=== PATIENT | male | born 1950 | race Caucasian/White ===

== ENCOUNTER 2017-06-11 21:49 | Emergency (ER) | payer MEDICARE, BC ==
[~2017-06-11] VITALS: Ht 166.4 cm; Wt 95.5 kg
[~2017-06-11 21:49] MED LIST: ACYCLOVIR400 MG PO; ALDACTONE25 MG PO; AMLODIPINE2.5 MG PO; AMLODIPINE5 MG PO; ANTIVERT12.5 MG PO; ANTIVERT25 MG PO; BUMETANIDE1 MG PO; CALCIUM600 M2 PO; CENTRUM SILVER ULTR1 PO; CLARITIN10 MG PO; DECADRON4 MG PO; DILAUDID2 MG PO; DOCUSATE CAL240 MG PO; DURAGESIC12 ( TD; FLEXERIL10 MG PO; FLOMAX0.4 M1 PO; HYDROCO/APAP1 TA9 PO; KLOR-CON SPRIN10 MEQ PO; LORAZEPAM0.5 MG PO; MAG OXIDE400 MG PO; MECLIZINE HCL25 MG PO; MILK OF MAG30 ML/UDC PO; MIRALAX3350 NF PO; NAPROSYN500 MG PO; PANTOPRAZOLE SO40 MG PO; PERCOCET 5/325M1 TAB OR; PREDNISONE10 MG PO; PREDNISONE5 MG PO; PROTONIX40 M2 PO; SIMVASTATIN40 MG PO; STERAPRED5 MG PO; VELCADE3.5 MG IV; VITAMIN D31000 UNI1 PO; VYTORIN1 TA1 OR; ZOCOR PO; ZOCOR5 MG PO; [UNRECOGNIZED DRUG - OTHER]
[2017-06-11] MEDS ORDERED: AMLODIPINE5 MG PO (22:32)
[2017-06-11] MEDS ORDERED: ZOFRAN ODT4 MG PO (22:33)
[2017-06-11] MEDS ORDERED: BUMETANIDE1 MG PO (22:33)
[2017-06-11] MEDS ORDERED: ALLEGRA180 MG PO (22:35)
[2017-06-11 23:05] LABS: HEMOGLOBIN 15.7 g/dl (14.0-18.0); IMMATURE GRANULOCYTES 0.7 % (0.0-1.0); MEAN CELL VOLUME 93.1 fL CALC (80.0-100.0); MEAN CORPUSCULAR HGB 31.8 pG CALC (26.0-32.0); MEAN CORPUSCULAR HGB CONC 34.1 g/L CALC (32.0-36.0); NEUT# 11.2 thou/uL (1.82-7.42); RED BLOOD COUNT 4.94 mill/uL (4.70-6.10); RED CELL DISTRI WIDTH 12.8 % (11.5-15.5)
[2017-06-11 23:16] LABS: ALBUMIN 4.8 g/dL (3.2-5.0); ALKALINE PHOSPHATASE 73 u/l (38-126); AMYLASE 111 u/l (30-110); ANION GAP 18 (6-22 (CALC)); BILIRUBIN, TOTAL 0.8 mg/dL (0.0-1.4); BUN 29 mg/dL (8-23); BUN/CREATININE RATIO 14 (12-20 (CALC)); CALCIUM 9.6 mg/dL (8.4-10.2); CARBON DIOXIDE 25 mmol/l (22-30); CHLORIDE 106 mmol/l (95-108); CREATININE 2.1 mg/dL (0.7-1.3); GFR 32 ML/MIN (>=60 (CALC)); GFR FOR AFR.AMER. 38 ML/MIN (>=60 (CALC)); GLUCOSE 120 mg/dL (82-115); LIPASE 110 u/l (23-300); POTASSIUM 3.4 mmol/l (3.5-5.1); SGOT/AST 40 u/l (19-48); SGPT/ALT 49 u/l (11-66); SODIUM 146 mmol/l (137-146); TOTAL PROTEIN 7.7 g/dL (6.3-8.2)
[2017-06-11 23:28] LABS: MYOGLOBIN 140 ng/mL (0 - 121)
[2017-06-11 23:33] LABS: URINE BILIRUBIN - DIPSTICK NEGATIVE (NEGATIVE); URINE BLOOD DIPSTICK NEGATIVE (NEGATIVE); URINE CLARITY CLEAR; URINE COLOR YELLOW; URINE GLUCOSE - DIPSTICK NEGATIVE (NEGATIVE); URINE KETONE NEGATIVE (NEGATIVE); URINE LEUK ESTERASE NEGATIVE (NEGATIVE); URINE NITRITE - DIPSTICK NEGATIVE (Negative); URINE PH 5.5 (4.5-8.0); URINE PROTEIN - DIPSTICK NEGATIVE (NEG-TRACE); URINE SPECIFIC GRAVITY 1.015; URINE UROBILINOGEN - DIPSTICK 0.2 E.U./dL (0.2)
[2017-06-12 00:35] VITALS: BP 155/89
== END 2017-06-12 00:35 | disposition home or self-care (01) ==
LOC: ED 21:49
PROVIDERS: Emergency Medicine
DX: R11.0 Nausea (principal); I10 Essential (primary) hypertension; E78.5 Hyperlipidemia, unspecified; R19.7 Diarrhea, unspecified

== ENCOUNTER 2021-05-27 07:01 | Day surgery (SDC) | payer MEDICARE, BC ==
[~2021-05-27] VITALS: Ht 167.6 cm; Wt 108.9 kg
[~2021-05-27 07:01] MED LIST changes: +ALLEGRA180 MG PO; +CLARITIN-D1 TA2 PO; +REPATHA SUR140 MG/ML IM; +SPIRONOLACTONE25 MG PO; +TAMSULOSIN HCL0.4 MG PO; +TOPROL XL25 M1 PO; +TYLENOL PM PO; +ZOFRAN ODT4 MG PO; +[UNRECOGNIZED DRUG - OTHER] PO
[2021-05-27 09:18] VITALS: BP 108/70
== END 2021-05-27 09:40 | disposition home or self-care (01) ==
LOC: ENDO 07:01 → ORM 09:05 → ENDO 09:05 → ORM 10:00
PROVIDERS: ATTEND Surgery
PROC: 0DJD8ZZ Inspection of Lower Intestinal Tract, Via Natural or Artificial Opening Endoscopic (ICD-10-PCS; principal; 2021-05-27)
DX: Z12.11 Encounter for screening for malignant neoplasm of colon (principal); K57.30 Diverticulosis of large intestine without perforation or abscess without bleeding; K64.4 Residual hemorrhoidal skin tags; K64.8 Other hemorrhoids; I10 Essential (primary) hypertension; E78.5 Hyperlipidemia, unspecified; N40.0 Benign prostatic hyperplasia without lower urinary tract symptoms; Z94.84 Stem cells transplant status; Z86.010 Personal history of colon polyps